=== PATIENT | female | born 1985 | race Hispanic/Latino ===

== ENCOUNTER 2017-09-24 16:42 | Outpatient (CLI) | payer BC ==
[2017-09-24 17:24] LABS: Blood Urea Nitrogen 15 mg/dL (7-17)
--- NOTE | 2017-09-25 12:03 | Magnetic Resonance Report ---
MRI OF THE BRAIN AND PITUITARY WITHOUT AND WITH CONTRAST: 09/24/17 CLINICAL: Elevated prolactin. COMPARISON: None. TECHNIQUE: Sagittal T1, axial FLAIR and T2 whole brain sequences plus sagittal and coronal thin slice postcontrast T1 pituitary sequences on a 1.5 Veronica magnet. 15cc of Multihance was injected intravenously for the contrast portion of the exam. Consent was obtained prior to the administration of contrast. FINDINGS: An oval smooth pituitary mass fills the sella and measures 1.5 x 1.0 x 1.2 cm. A fluid debris level is evident on both T1 and T2 sequences. The more anterior superior fluid component is hyperintense on T1, T2 and FLAIR and the dependent portion is relatively hypointense on all sequences. There is no detectable enhancement of the mass. The suprasellar cistern, optic chiasm and infundibulum are normal. The ventricles and sulci are normal for age. No abnormal signal in the remaining brain. 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
== END 2017-09-24 16:43 | disposition home or self-care (01) ==
LOC: EEVIPCON 16:42 → MRI 16:42
PROVIDERS: ATTEND Obstetrics & Gynecology
DX: E22.9 Hyperfunction of pituitary gland, unspecified (principal); E23.6 Other disorders of pituitary gland; I10 Essential (primary) hypertension; Z87.891 Personal history of nicotine dependence
CPT/HCPCS: 36415; 70553; 82565; 84520; A9577